=== PATIENT | male | born 2000 | race Caucasian/White ===

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

== ENCOUNTER → 2020-05-18 11:43 | Outpatient (CLI) | payer OTHER ==
[2020-04-07 10:48] VITALS: BMI 17.6
[~2020-05-18 11:43] MED LIST changes: +LEVSIN/ANASP0.125 MG PO; +ZOFRAN ODT4 MG/UDTAB PO
[2020-05-18 12:19] LABS: BASOPHILS 0.1 % (0-2); EOSINOPHILS 0 % (0-7); HEMOGLOBIN 12.9 g/dL (13.5-17.5); IMMATURE GRANULOCYTES 0.5 % (0-5); LYMPHOCYTE ABS# 1.12 10x3/uL (1.32-3.57); LYMPHOCYTES 10.4 % (15-50); MCH 29.9 pg (26.0-34.0); MCHC 33.1 g/dL (31.0-37.0); MCV 90.5 fL (80.0-100.0); MEAN PLATELET VOLUME 8.5 fL (7.4-10.4); MONOCYTES 1.9 % (2-11); NEUTROPHIL ABS# 9.38 10x3/uL (1.78-5.38); NEUTROPHILS 87.1 % (40-80); PLATELET COUNT 278 10x3/uL (130-400); RBC 4.31 10x6/uL (4.20-6.10); RDW 14.8 % (11.5-14.5); WBC 10.8 10x3/uL (4.8-10.8)
[2020-05-18 12:40] LABS: ALBUMIN 3.1 g/dL (3.4-5.0); ALKALINE PHOSPHATASE 59 U/L (30-120); ALT (SGPT) 19 U/L (10-68); BILIRUBIN - TOTAL 0.25 mg/dL (0.2-1.3); CALC OSMOLALITY 278 mosm/kg (275-300); CALCIUM 8.8 mg/dL (8.5-10.1); CARBON DIOXIDE 30.2 mmol/L (21.0-32.0); CHLORIDE - SERUM 104 mmol/L (98-107); CREATININE - SERUM 0.7 mg/dL (0.6-1.3); GLUCOSE 97 mg/dL (74-106); POTASSIUM - SERUM 3.3 mmol/L (3.5-5.1); PROTEIN - SERUM 7.2 g/dL (6.4-8.2); SODIUM 141 mmol/L (136-145); UREA NITROGEN 7 mg/dL (7-18); eGFR NON AFRICAN AMERICAN > 90 mL/min (90-120)
[2020-05-18 12:41] LABS: C-REACTIVE PROTEIN < 0.2 mg/dL (0.0-0.9)
[2020-05-18 14:36] LABS: ERYTHROCYTE SEDIMENTATION RATE 24 mm/hr (0-15)
== END | disposition home or self-care (01) ==
LOC: D.LAB 11:43
PROVIDERS: ATTEND Internal Medicine Gastroenterology
DX: K50.10 Crohn's disease of large intestine without complications (principal); K59.00 Constipation, unspecified